=== PATIENT | male | born 1965 | race Two or more races ===

== ENCOUNTER 2021-02-17 05:23 | Emergency (ER) | payer MEDICAID ==
[~2021-02-17] VITALS: Ht 160 cm; Wt 100.0 kg
[~2021-02-17 05:23] MED LIST: LISI20TA28 PO; METF500T PO
[2021-02-17] MEDS ORDERED: ondansetron 4mg rapidly disintigrating tab PO ONE (05:35)
[2021-02-17] MEDS ORDERED: meclizine 12.5mg tablet PO ONE (05:35)
[2021-02-17] MEDS ORDERED: MECL-159 PO (05:47)
[2021-02-17] MEDS ORDERED: ONDA4TAB6 PO (05:47)
[2021-02-17 05:58] VITALS: BP 144/86
== END 2021-02-17 06:01 | disposition home or self-care (01) ==
LOC: ER 05:23
DX: H81.10 Benign paroxysmal vertigo, unspecified ear (principal); E11.65 Type 2 diabetes mellitus with hyperglycemia; R51.9 Headache, unspecified; I10 Essential (primary) hypertension; Z90.89 Acquired absence of other organs; Z72.89 Other problems related to lifestyle; Z79.899 Other long term (current) drug therapy
CPT/HCPCS: 82948; 99283; J8597

== ENCOUNTER 2021-03-05 06:36 | Emergency (ER) | payer MEDICAID ==
[~2021-03-05] VITALS: Ht 160 cm; Wt 100.0 kg
[~2021-03-05 06:36] MED LIST changes: +MECL-159 PO; +ONDA4TAB6 PO
[2021-03-05 08:19] LABS: CLARITY,URINE Bloody (Clear); COLOR,URINE RED (Yellow); GLUCOSE, URINE >=1000 mg/dl (Neg); PROTEIN,URINE 300 mg/dl (Neg); UA COLLECTION TYPE CLN CATCH MIDSTREAM
[2021-03-05 08:20] LABS: KETONES,URINE NEGATIVE (Neg); LEUKOCYTE ESTERASE ,URINE MODERATE (Neg); NITRITES, URINE NEGATIVE (Neg); OCCULT BLOOD,URINE LARGE (Neg); UROBILINOGEN,URINE 0.2 E.U/dL (0.2-1.0)
[2021-03-05 08:21] LABS: BACTERIA,URINE FEW /HPF (Neg); MUCUS STRANDS NONE SEEN /LPF (Neg); RBC,URINE TNTC /HPF (0-2); SQUAMOUS EPITHELIAL CELL,UR NONE SEEN /LPF (FEW); WBC CLUMPS,URINE MANY /HPF (NEGATIVE); WBC,URINE TNTC /HPF (0-4)
[2021-03-05 08:42] LABS: BASOPHILS % (AUTO) 0.4 % (0-1); EOSINOPHILS # (AUTO) 0.2 X10'3 (0-0.9); EOSINOPHILS % (AUTO) 1.5 % (0-6); HEMATOCRIT 44.7 % (42.0-52.0); HEMOGLOBIN 14.8 g/dl (14.0-17.9); LYMPHOCYTES # (AUTO) 1.5 X10'3 (1.1-4.8); LYMPHOCYTES % (AUTO) 13.8 % (21-51); MEAN CORPUSCULAR HEMOGLOBIN 29.1 PG (27.0-31.0); MEAN CORPUSCULAR VOLUME 88.2 FL (78-98); MEAN PLATELET VOLUME 7.9 FL (7.4-10.4); MONOCYTES # (AUTO) 0.7 X10'3 (0-0.9); MONOCYTES % (AUTO) 6.6 % (2-12); NEUTROPHILS # (AUTO) 8.7 X10'3 (1.8-7.7); NEUTROPHILS % (AUTO) 77.7 % (42-75); PLATELET COUNT 282 X10'3 (140-440); RED BLOOD COUNT 5.07 X10'6 (4.70-6.10); RED CELL DISTRIBUTION WIDTH 13.4 % (11.5-14.5); WHITE BLOOD COUNT 11.2 X10'3 (4.5-11.0)
[2021-03-05 08:47] LABS: ALBUMIN 3.5 G/DL (3.4-5.0); ANION GAP -4 (8-16); BLOOD UREA NITROGEN 12 MG/DL (7-18); BUN/CREATININE RATIO 15.2 (5.4-32.0); CALCIUM 8.3 MG/DL (8.5-10.1); CHLORIDE 101 MMOL/L (99-107); CREATININE 0.79 MG/DL (0.60-1.10); GLUCOSE 248 MG/DL (70-104); POTASSIUM 3.4 MMOL/L (3.5-5.1); SODIUM 122 MMOL/L (135-145); TOTAL CARBON DIOXIDE 24.9 MMOL/L (24-32); eGFR > 90 ML/MIN
[2021-03-05 08:55] LABS: PARTIAL THROMBOPLASTIN TIME 27 SECONDS (22-32)
[2021-03-05] MEDS ORDERED: CEPH-585 PO (10:04)
[2021-03-05 10:21] VITALS: BP 146/119
== END 2021-03-05 10:22 | disposition home or self-care (01) ==
LOC: ER 06:37
DX: N39.0 Urinary tract infection, site not specified (principal); R31.9 Hematuria, unspecified; E78.00 Pure hypercholesterolemia, unspecified; I10 Essential (primary) hypertension; E11.9 Type 2 diabetes mellitus without complications; Z90.89 Acquired absence of other organs; Z98.890 Other specified postprocedural states; Z72.89 Other problems related to lifestyle; Z79.2 Long term (current) use of antibiotics; Z79.899 Other long term (current) drug therapy
CPT/HCPCS: 36415; 74176; 80048; 81001; 85025; 85610; 85730; 87077; 87088; 87186; 99284

== ENCOUNTER 2022-12-14 09:44 | Emergency (ER) | payer MEDICAID ==
[~2022-12-14] VITALS: Ht 165.1 cm; Wt 110.0 kg
[2022-12-14] MEDS ORDERED: normal saline 1000ML IV soln IVB ONE ×2 (10:55→11:00)
[2022-12-14] MEDS ORDERED: ketorolac trometh. 30mg/ml inj. IV ONE (10:55)
[2022-12-14] MEDS ORDERED: proCHLORperazine 10 MG/2 ml inj IV ONE (10:55)
[2022-12-14] MEDS ORDERED: haloperidol lactate 5mg/ml inj IM ONE (10:55)
[2022-12-14] MEDS ORDERED: diphenhydrAMINE 50 mg/ml inj IV ONE (10:55)
[2022-12-14 11:19] LABS: BASOPHILS % (AUTO) 0.4 % (0-1); EOSINOPHILS # (AUTO) 0.3 X10'3 (0-0.9); EOSINOPHILS % (AUTO) 3.3 % (0-6); HEMATOCRIT 47.3 % (42.0-52.0); LYMPHOCYTES # (AUTO) 2.3 X10'3 (1.1-4.8); LYMPHOCYTES % (AUTO) 21.8 % (21-51); MEAN CORPUSCULAR HEMOGLOBIN 30.5 PG (27.0-31.0); MEAN CORPUSCULAR HGB CONC 33.9 g/dL (33.0-36.5); MEAN CORPUSCULAR VOLUME 89.8 FL (78-98); MEAN PLATELET VOLUME 7.8 FL (7.4-10.4); MONOCYTES # (AUTO) 0.7 X10'3 (0-0.9); NEUTROPHILS # (AUTO) 7.1 X10'3 (1.8-7.7); NEUTROPHILS % (AUTO) 67.5 % (42-75); PLATELET COUNT 250 X10'3 (140-440); RED BLOOD COUNT 5.27 X10'6 (4.70-6.10); RED CELL DISTRIBUTION WIDTH 13.9 % (11.5-14.5); WHITE BLOOD COUNT 10.5 X10'3 (4.5-11.0)
[2022-12-14 11:30] LABS: ALANINE AMINOTRANSFERASE 45 U/L (12-78); ALBUMIN 3.7 G/DL (3.4-5.0); ALBUMIN/GLOBULIN RATIO 1.2 (1.1-1.5); ALKALINE PHOSPHATASE 85 IU/L (46-116); ANION GAP 5 (8-16); ASPARTATE AMINO TRANSFERASE 20 U/L (10-37); BILIRUBIN,TOTAL 0.5 MG/DL (0.1-1.0); BLOOD UREA NITROGEN 13 MG/DL (7-18); BUN/CREATININE RATIO 18.8 (10.0-20.0); CHLORIDE 103 MMOL/L (99-107); CREATININE 0.69 MG/DL (0.60-1.10); GLUCOSE 157 MG/DL (70-104); POTASSIUM 3.5 MMOL/L (3.5-5.1); SODIUM 135 MMOL/L (135-145); TOTAL CARBON DIOXIDE 26.7 MMOL/L (24-32); TOTAL PROTEIN 6.9 G/DL (6.4-8.2); eGFR > 90 ML/MIN
[2022-12-14 11:39] LABS: APTT 29 SECONDS (22-32)
[2022-12-14] MEDS ORDERED: LORazepam 2 mg/ml vial IV ONE (13:40)
[2022-12-14] MEDS ORDERED: ondansetron/PF 4mg/2ml inj IV ONE (13:50)
[2022-12-14] MEDS ORDERED: ATOR40TA7 PO (16:17)
[2022-12-14] MEDS ORDERED: LISI20TA28 PO (16:17)
[2022-12-14 16:18] VITALS: BP 169/97
== END 2022-12-14 16:23 | disposition home or self-care (01) ==
LOC: ER 09:45
DX: G43.909 Migraine, unspecified, not intractable, without status migrainosus (principal); I10 Essential (primary) hypertension; E11.9 Type 2 diabetes mellitus without complications; E78.00 Pure hypercholesterolemia, unspecified; Z79.899 Other long term (current) drug therapy
CPT/HCPCS: 36415; 70551; 80053; 85025; 85610; 85730; 96361; 96372; 96374; 96375; 99285; J0780; J1200; J1630; J1885; J2060; J2405; J7030